=== PATIENT | female | born 1955 | race Caucasian/White ===

== ENCOUNTER 2022-07-27 00:53 | Emergency (ER) | payer OTHER ==
[~2022-07-27] VITALS: Ht 157.5 cm; Wt 65.0 kg
[2022-07-27 01:01] VITALS: BP 130/84
--- NOTE | 2022-07-27 01:05 | NUR ---
TO LOBBY AW BED AMBULATORY
--- NOTE | 2022-07-27 02:16 | NUR ---
PT TAKEN TO BED 11
--- NOTE | 2022-07-27 03:14 | NUR ---
Dr. Melendez examining patient.
[2022-07-27] MEDS ORDERED: NACL 0.9% 1,000 ML IV ONE (03:20)
[2022-07-27 03:32] LABS: BASOPHILS % (AUTO) 0.1 % (0.0-2.0); EOSINOPHILS % (AUTO) 0.2 % (0.0-4.0); HEMATOCRIT 36.7 % (36-48); HEMOGLOBIN 12.3 g/dL (12.0-16.0); LYMPHOCYTES # (AUTO) 0.4 K/uL (2.5-16.5); LYMPHOCYTES % (AUTO) 4.3 % (20.5-51.1); MEAN CORPUSCULAR HEMOGLOBIN 29 pg (27-31); MEAN CORPUSCULAR HGB CONC 34 g/dL (33-37); MEAN CORPUSCULAR VOLUME 87.7 fL (80-94); MONOCYTES # (AUTO) 0.1 K/uL (0.8-1.0); MONOCYTES % (AUTO) 0.8 % (1.7-9.3); NEUTROPHILS # (AUTO) 9.7 K/uL (1.8-7.7); NEUTROPHILS % (AUTO) 94.6 % (42.2-75.2); PLATELET COUNT (AUTO) 188 K/uL (140-450); RED BLOOD CELL COUNT(AUTO) 4.18 MIL/uL (4.20-5.40); RED CELL DISTRIBUTION WIDTH 14.9 % (11.6-13.7); WHITE BLOOD COUNT (AUTO) 10.2 K/uL (4.8-10.8)
--- NOTE | 2022-07-27 03:46 | NUR ---
FLU SWAB COLLECTED AND SENT TO LAB
[2022-07-27 03:50] LABS: ALBUMIN 3.5 g/dL (3.4-5.0); ANION GAP 12.5 (8-16); CARBON DIOXIDE 29.9 mmol/L (21-32); CREATININE 0.6 mg/dL (0.6-1.3); POTASSIUM 3.4 mmol/L (3.5-5.1); TOTAL BILIRUBIN 0.9 mg/dL (0.0-1.0)
--- NOTE | 2022-07-27 03:50 | NUR ---
PT TAKEN TO CT
[2022-07-27 04:37] LABS: APPEARANCE,URINE CLEAR (CLEAR); BILIRUBIN,URINE NEGATIVE (NEGATIVE); BLOOD, URINE TRACE-L (NEGATIVE); COLOR,URINE YELLOW (YELLOW); LEUKOCYTE ESTERASE ,URINE NEGATIVE (NEGATIVE); NITRITE, URINE NEGATIVE (NEGATIVE); UGLUCOSE NEGATIVE (NEGATIVE)
--- NOTE | 2022-07-27 04:44 | NUR ---
67 YO F BIB SON WITH C/C OF AN EPISODE OF [place] XTONIGHT. PT STATES SHE HAS ONE EPISODE OF N/V, NOW HAS SUBSIDED. PT STATES SHE HAD SOME VAGINAL BLEEDING ON AND OFF FOR A FEW WEEKS. PT STATES SHE THINKS SHE HAS A HERNIA BUT HER PRIMARY DID NOT CONFIRM. PT DENIES ABD PAIN. REPORTS SHE DID NOT TAKE ANYTHING FOR PAIN OR OTC MEDS FOR A COLD. DENIES FEVER AND CHEST PAIN. DENIES HX, RX AND ALLERGIES
--- NOTE | 2022-07-27 05:15 | NUR ---
PT AMB TO [facility] W/O ASST UA SENT TO LAB
--- NOTE | 2022-07-27 05:21 | NUR ---
67YR OLD FEMALE BIB FAMILY C/O VAG BLEED / PAIN RLQ PAIN. CHRONIC PAIN. MULTI SX. SON AT BEDSIDE. PT ON BEDSIDE MONITOR. A&OX4. SKIN WARM AND DRY. RESP EVEN AND UNLABORED. NKDA NO MED HX
[2022-07-27 05:41] LABS: RBC,URINE 0-5 /HPF (0-5); WBC,URINE 0-5 /HPF (0-5)
[2022-07-27] MEDS ORDERED: NITR100C7 PO (05:56)
[2022-07-27 06:16] VITALS: BP 93/45
--- NOTE | 2022-07-27 06:16 | NUR ---
Patient discharged with v/s stable. Written and verbal after care instructions given and explained. Patient alert, oriented and verbalized understanding of instructions. Ambulatory with steady gait. All questions addressed prior to discharge. ID band removed. Patient advised to follow up with PMD. Rx of MICROBID given.
--- NOTE | 2022-07-27 06:21 | NUR ---
The patient's care was reviewed and supervised by Katherine Pope RN, RN.
== END 2022-07-27 06:16 | disposition home or self-care (01) ==
LOC: MED 00:53
DX: R82.71 Bacteriuria (principal); R68.83 Chills (without fever); R09.81 Nasal congestion; N93.9 Abnormal uterine and vaginal bleeding, unspecified; Z90.49 Acquired absence of other specified parts of digestive tract; Z79.899 Other long term (current) drug therapy
CPT/HCPCS: 36415; 74176; 80053; 81001; 83605; 83690; 85025; 87040; 87086; 87804; 96360; 96361; 99284; J7030